=== PATIENT | male | born 2000 | race Caucasian/White ===

== ENCOUNTER 2024-06-30 18:10 | Emergency (ER) | payer BC, SELFPAY ==
[2024-06-30] VITALS (35 sets, daily range): BP systolic 131–155; BP diastolic 53–87; PULSE 90–116; RESP 14–31; TEMP 36.8; O2SAT 96–99
--- NOTE | 2024-06-30 18:15 | DI.CT_ITS ---
Exam(s) CT CHEST/ABD/PEL W CT THORACIC LUMBAR SPINE REC EXAM: CT CHEST/ABD/PEL W CLINICAL HISTORY: Fall > 15 ft, Lower back/L. hip and sternal pain. TECHNIQUE: Imaging Protocol: Axial computed tomography images with coronal and sagittal reformatted images were created and reviewed. Computer aided detection (CAD) was utilized. Axial, coronal and sagittal images of the thoracic and lumbar spine were reconstructed from the chest abdomen pelvic CT in bone and soft tissue algorithm. CONTRAST MATERIAL: Intravenous: Omnipaque 350 Contrast volume:100 ml Oral: no COMPARISON: CT CT THORACIC LUMBAR SPINE REC from 06/30/2024 FINDINGS: CHEST: Tracheobronchial tree: Patent. Pulmonary parenchyma: No consolidation or dominant measurable mass. Pleura: No effusion or pneumothorax. Mediastinum: Within normal limits. Aorta: Thoracic portion non-dilated. Pulmonary arteries: No visible emboli. Heart: No pericardial effusion. Bones: Mild compression fracture of the superior endplate of T12 of approximately 15 percent. No ret ropulsion. The posterior elements are not involved. No additional fractures. No visible rib or alexandra ulder fractures. No lytic or blastic lesions. No hemorrhage visible within the central canal. No e vidence of disc herniation. Soft tissues: Mild soft tissue swelling anterior to the T12 vertebral body. ABDOMEN and PELVIS: Liver: Normal density. No measurable mass. No evidence of laceration. Gallbladder and biliary tract: No evidence of stones or wall thickening. No biliary dilatation. Pancreas: Normal density, no abnormal calcifications or inflammatory process. Spleen: Normal. No evidence of laceration. Kidneys: Normal size, contour and axis. No radiodense stones. No obstructive uropathy. No suspicious masses seen. Adrenal glands: No masses seen. No evidence of renal injury. Aorta: Abdominal portion non-dilated. Lymph nodes: Within normal limits. Soft tissues: Unremarkable. Bladder: Unremarkable. Bowel: No obstruction or bowel wall thickening. Peritoneal cavity: No ascites. No focal collection. No mesenteric inflammatory response. No free ai r. Bones: No evidence of fracture. The alignment is normal. No evidence of disc herniation. No visibl e hemorrhage within the central canal. Reproductive organs: Within normal limits. IMPRESSION: Mild compression fracture of the superior endplate of T12. No acute abnormality in the abdomen or pelvis. RADIATION DOSE DELIVERED: Total DLP DATA REPOSITORY: All CT scans at this facility are submitted to the National Radiology Data Registry (NRDR) Dose Index Registry (DIR) with the [employer] [place] [employer] (A[employer]). RADIATION OPTIMIZATION: All CT scans at this facility use at least one of these dose optimization te chniques: automated exposure control; mA and/or kV adjustment per patient size (includes targeted exa ms where dose is matched to clinical indication); or iterative reconstruction.
--- NOTE | 2024-06-30 18:15 | DI.CT_ITS ---
Exam(s) CT HEAD CERVICAL SPINE WO EXAM: CT HEAD CERVICAL SPINE WO CLINICAL HISTORY: Fall > 15 ft. TECHNIQUE: Imaging Protocol: Axial computed tomography images with coronal and sagittal reformatted images were created and reviewed COMPARISON: No exams were available for comparison FINDINGS: Head CT Ventricles and Extra axial spaces: Normal in size and morphology for the patient's age. Hemorrhage: None. Cerebral parenchyma: No evidence of mass or acute infarct. Midline shift: None. Brainstem/Cerebellum: Normal. Calvarium: Normal. Visualized Paranasal sinuses: Air-fluid level and mucosal mucous retention in left maxillary sinus. Remaining sinuses are clear. No facial fracture. Mastoids: Clear. Soft tissues: Unremarkable. Cervical Spine CT BONES: Vertebral body heights are maintained. Alignment is normal. There is no evidence of acute frac ture. SOFT TISSUES: No paraspinal hematoma. The airway appears intact. No pneumothorax is seen at the lung apices. IMPRESSION: Head CT: No acute abnormality. Right maxillary sinus disease. C-spine CT: no acute abnormality. RADIATION DOSE DELIVERED: Total DLP DATA REPOSITORY: All CT scans at this facility are submitted to the National Radiology Data Registry (NRDR) Dose Index Registry (DIR) with the [employer] ([employer]CR). RADIATION OPTIMIZATION: All CT scans at this facility use at least one of these dose optimization te chniques: automated exposure control; mA and/or kV adjustment per patient size (includes targeted exa ms where dose is matched to clinical indication); or iterative reconstruction.
--- NOTE | 2024-06-30 18:18 | ED.GENADUL_ITS ---
Discharge Plan Disposition Patient Disposition: Home Condition: Stable Discharge Details Clinical Impression: Fracture of T12 vertebra, Fall Primary Care Provider: Unknown,Unknown ED Provider: Chery Allen Home Meds and New Rx's Prescriptions: No Action No Known Home Meds Discharge Instructions Instructions: Vertebral Compression Fracture (DC) Additional Instructions: You were seen in the emergency department today for evaluation after a fall. You are found to have a compression fracture of T12, one of the vertebrae in your spine. This fracture was reassuringly stable, and is safe for you to go home and follow-up as an outpatient with a spine doctor, which is often done by neurosurgery or orthopedics. If you decide that you want to follow-up with the [facility], the phone number for their clinic is [phone]. You need to avoid heavy lifting and significant exertion that cause you to pain. Please use Tylenol and ibuprofen for the basis of your care, you can use topical [id number] medications such as lidocaine patches, and I have provided you with a short course of morphine for breakthrough pain. Please use this medication with caution, as it can cause drowsiness. You need to call your primary care provider on Tuesday to schedule follow-up in your home state and determine if you need additional narcotic pain medications at that time as I cannot prescribe these medications in [place]. Please return to care immediately if you develop weakness or numbness, cannot pee, or have incontinence of urine or feces. Thank you for allowing us to be part of your care. HPI General Mode of arrival: EMS . Date/Time Provider Initiated Documentation: 06/30/24 18:17 . Limitations to Documentation: no limitations . Information obtained by: patient and EMS . HPI Narrative: HPI: This is a 24-year-old male patient without significant past medical history who is presenting for evaluation as a trauma. The patient was exploring a condemned radar tower, stepped backwards and fell through a hole in the floor, falling an estimated 15 to 20 feet onto concrete. He is not sure if he lost consciousness or not, landed on his bottom and is experiencing left hip, lower back, and sternal pain. He was hemodynamically appropriate for EMS, placed in spinal precautions and transported to our facility without need for acute intervention. Prior to this event the patient was in his normal state of health. He is not experiencing vision changes, headache, neck pain. He states that he has some pain to his bilateral elbows, which have some abrasions, has had intermittent numbness and tingling throughout transport of his bilateral hands. Exam: Gen: awake and alert, in no apparent distress. Appears well nourished. HEENT: PERRL, EOMs full and without nystagmus. External ears and nose normal, mucous membranes moist. Neck: C-collar in place, no step-offs or cervical spine tenderness to palpation Lungs: No increased work of breathing, lung sounds clear and equal bilaterally without wheezes, rhonchi, or rales. CV: Heart with regular rate and rhythm, no murmurs auscultated. Strong and symmetrical radial pulses. Abdomen: Soft, nondistended, non-tended to palpation. No rigidity, rebound tenderness, or guarding. MSK: L-spine tenderness to palpation without step-offs or overlying skin changes. The patient does have abrasions to the buttocks. Clavicles and chest wall are stable to compression and without deformity or crepitus. Pelvis stable to AP compression, tenderness to palpation over the left hip. Skin: No rashes or lesions to visualized skin. Normal color, warm, and dry. Abrasions to buttocks and elbows bilaterally Neuro: Cranial nerves II-XII intact and symmetrical bilaterally. 5/5 strength in all muscle groups x4 extremities. No sensory deficits. Psych: Appropriate for situation. MDM: This is a 24-year-old male patient presenting as a trauma by EMS after a fall approximately 15 to 20 feet. On arrival to our emergency department, primary survey noted to be intact, and proceeded with a secondary survey per ATLS standards. Differential certainly includes but is not limited to intracranial hemorrhage, skull fracture, spinal fracture, spinal cord injury. Considered intrathoracic, intra-abdominal, and intrapelvic injuries. Considered long bone fracture, abrasion, contusions. EFAST exam was performed as noted below and was negative. We will obtain protocol laboratory studies as well as a trauma palumbo scan to evaluate for injury. I provided the patient with a dose of Tylenol for initial symptomatic management of pain. ED Course: Laboratory studies reviewed, showing a leukocytosis to 18, likely reactive in this patient with no infectious symptoms or fever. There is no anemia or thrombocytopenia, INR 1.1. Chemistry panel without electrolyte derangements, evidence of kidney injury or severe liver dysfunction. Troponin was negative. CT scans were independently interpreted by myself, showing a T12 compression fracture. Radiology notes a small perispinal hematoma, no evidence of spinal cord involvement or spinal canal stenosis. I did reach out to neurosurgery at [facility], who recommended upright x-rays, which were performed and did not show any instability of the fracture. They recommended outpatient management with multimodal pain control. The patient resides in [place], and unfortunately will not be able to return to [facility] for reevaluation. I did provide him with a short course of oral morphine and recommended he follow-up with his primary care provider for reassessment. The patient C-spine was clinically cleared, he ambulated appropriately, and had an intact neuro examination. At this time, the patient has had a full medical evaluation and is safe for discharge to home. They are hemodynamically stable, ambulatory, and tolerating PO. They are understanding of the follow-up plan and return precautions. They left our facility without incident. Chery Allen MD Related Data Home Medications ?Medication ?Instructions ?Recorded ?Confirmed Unknown [No Known Home Meds] 06/30/24 06/30/24 General Stated Complaint: Trauma GRICEL: 2 Course Vital Signs Vital signs: Vital Signs Pulse 111 H 06/30/24 18:02 Respiratory Rate 18 06/30/24 18:02 Blood Pressure 141/87 H 06/30/24 18:02 Pulse Oximetry 98 06/30/24 18:02 Pulse 111 H 06/30/24 18:02 Respiratory Rate 18 06/30/24 18:02 Blood Pressure 141/87 H 06/30/24 18:02 Pulse Oximetry 98 06/30/24 18:02 Oxygen Delivery Method Room Air 06/30/24 18:02 Oxygen Flow Rate 0 06/30/24 18:02 Medical Decision Making Quality:SDOH Health Related Social Needs: No Data to Display Critical Care Time Critical Care Time Critical Care Time: Yes Total Critical Care Time: 45 Attestation: Upon my evaluation, this patient had a high probability of imminent or life- threatening deterioration due to significant trauma, which required my direct attention, intervention, and personal management. I have personally provided 45 minutes of critical care time exclusive of time spent on separately billable procedures. Time includes review of laboratory data, radiology results, discussion with consultants, and monitoring for potential decompensation. Interventions were performed as documented above. Chery Allen MD [facility] All Active Problems (Updated 06/30/24 @ 21:27 by Chery Allen MD) Fall (Acute) Fracture of T12 vertebra (Acute) Social History Smoking/Tobacco Use Status: Never Smoking risk assessment performed?: Yes Drug use: Never Substance use type: does not use Housing: house Do you feel safe at home: Yes Do you feel safe in your relationship?: Yes POCUS Exam (ED) Efast Exam DATE OF EXAM: 06/30/24 TIME OF EXAM: 18:00 PROVIDER THAT PEFORMED THE STUDY: Chery Allen IS THIS A REPEAT EXAM DURING THIS ENCOUNTER: no REASON FOR EXAM: Fall VISUALIZED STRUCTURES: Hepatorneal space, Pelvis, Pericardium, Perisplenic space, Pleural space/left and Pleural space/right PERTINENT FINDINGS/IMPRESSION: no apparent abnormalities Limited Transthoracic Echo: Exam complete Limited Abdominal Exam: Exam complete Limited Retroperitoneal Exam: Exam complete
[2024-06-30] MEDS: ACETAMINOPHEN 1,000 MG/100 ML BAG 400 MG IVPB (18:25)
[2024-06-30 18:29] LABS: Absolute Basophil Count 0.04 10^3/uL (0.0-0.2); Absolute Eosinophil Count 0.02 10^3/uL (0.0-0.7); Absolute Lymphocyte Count 0.91 10^3/uL (1.2-3.4); Absolute Monocyte Count 1.15 10^3/uL (0.1-0.8); Absolute Neutrophil Count 15.93 10^3/uL (1.2-6.7); Basophils % 0.2 %; Eosinophils % 0.1 %; HCT 46.8 % (40.0-50.0); HGB 16.6 g/dL (13.5-17.5); Immature Grans % 1.1 %; MCH 31.4 pg (27.0-33.0); MCHC 35.5 % (32.0-36.0); MCV 89 fL (80-95); MPV 9.9 fL (8.0-11.0); Monocytes % 6.3 %; Neutrophils % 87.3 %; Platelet Count 255 10^3/uL (130-400); RBC 5.29 10^6/uL (4.36-5.78); RDW-SD 38.7 fL; WBC 18.25 10^3/uL (4.4-10.8)
[2024-06-30] MEDS: Omnipaque 350 MG/ML 100 ML BTL IJ (18:31)
[2024-06-30] MEDS: Normal Saline - Diluent 50 ML VIAL IJ (18:32)
[2024-06-30 18:40] LABS: INR 1.1 (0.9-1.1); Prothrombin Time 10.6 sec (9.1-11.1)
[2024-06-30 18:47] LABS: ALT 61 U/L (16-63); AST 41 U/L (15-37); Albumin 4.7 g/dL (3.4-5.0); Alkaline Phosphatase 97 U/L (46-116); Anion Gap 10.8 mmol/L (3-11); BUN 16 mg/dL (7-18); Bilirubin, Total 1.15 mg/dL (0.2-1.0); CO2 25.2 mmol/L (21.0-32.0); CREATININE 1.3 mg/dL (0.70-1.30); Calcium 9.7 mg/dL (8.5-10.1); Chloride 104 mmol/L (98-107); Estimated GFR 79.66 (mL/min/1.73m2); Glucose 99 mg/dL (74-106); Magnesium 1.6 mg/dL (1.8-2.4); Potassium 3.7 mmol/L (3.5-5.1); Sodium 140 mmol/L (136-145); Total Protein 7.5 g/dL (6.4-8.2); Troponin I 10 ng/L (<or=76)
--- NOTE | 2024-06-30 19:02 | DI.VRAD_ITS ---
PROCEDURE INFORMATION: Exam: CT Head Without Contrast Exam date and time: 06/30/2024 6:27 PM Age: 24 years old Clinical indication: Injury or trauma; Other: Fall > 15 ft; Injury date: 06/30/24; Injury details: Lbp + lt hip pain TECHNIQUE: Imaging protocol: Computed tomography of the head without contrast. Radiation optimization: All CT scans at this facility use at least one of these dose optimization techniques: automated exposure control; mA and/or kV adjustment per patient size (includes targeted exams where dose is matched to clinical indication); or iterative reconstruction. COMPARISON: No relevant prior studies available. FINDINGS: Brain: Normal. No intraxial or extraaxial hemorrhage. No infarct visible at this time. Unremarkable white matter. No mass effect. No significant involutional change. Cerebral ventricles: Normal. No ventriculomegaly or midline shift. Pituitary gland and sella: Normal. No enlargement. Paranasal sinuses: Visualized sinuses are unremarkable. No fluid levels or mucosal thickening. Mastoid air cells: Visualized mastoid air cells are well aerated. Bones: Unremarkable. No acute fracture. Soft tissues: Unremarkable. Vasculature: No significant atherosclerotic calcification. IMPRESSION: Normal head CT. PROCEDURE INFORMATION: Exam: CT Cervical Spine Without Contrast Exam date and time: 06/30/2024 6:27 PM Age: 24 years old Clinical indication: Injury or trauma; Other: Fall > 15 ft; Injury date: 06/30/24; Injury details: Lbp + lt hip pain TECHNIQUE: Imaging protocol: Computed tomography of the cervical spine without contrast. Radiation optimization: All CT scans at this facility use at least one of these dose optimization techniques: automated exposure control; mA and/or kV adjustment per patient size (includes targeted exams where dose is matched to clinical indication); or iterative reconstruction. COMPARISON: No relevant prior studies available. FINDINGS: Bones: No acute fracture. Normal alignment. No significant disc bulge or herniation. No severe spinal canal stenosis. No significant neural foraminal narrowing. Lungs: Lung apices are clear. Soft tissues: Unremarkable. No prevertebral soft tissue swelling. IMPRESSION: No acute findings. Dictated and Authenticated by: Alex Silverio MD. Ordering:ANTONIO Rockwell MD
--- NOTE | 2024-06-30 19:08 | DI.VRAD_ITS ---
Addendum created by Mayte Lopez MD on 06/30/2024 7:10:29 PM EST: I discussed case findings with [facility] Chery 06/30/2024 7:10 PM EST. Initial report created on 06/30/2024 7:08:01 PM EST: PROCEDURE INFORMATION: Exam: CT Chest With Contrast; Diagnostic Exam date and time: 06/30/2024 6:39 PM Age: 24 years old Clinical indication: Injury or trauma; Blunt; Generalized; Other: Fall > 15 ft; Injury date: 06/30/24 TECHNIQUE: Imaging protocol: Diagnostic computed tomography of the chest with contrast. Radiation optimization: All CT scans at this facility use at least one of these dose optimization techniques: automated exposure control; mA and/or kV adjustment per patient size (includes targeted exams where dose is matched to clinical indication); or iterative reconstruction. Contrast material: OMNIPAQUE 350; Contrast volume: 100 ml; Contrast route: INTRAVENOUS (IV); COMPARISON: CT THORACIC LUMBAR SPINE REC 06/30/2024 6:39 PM FINDINGS: Lungs: Unremarkable. No consolidation. No masses. Pleural spaces: Unremarkable. No pneumothorax. No pleural effusion. Heart: Unremarkable. No cardiomegaly. No pericardial effusion. Lymph nodes: Unremarkable. No enlarged lymph nodes. Vasculature: Unremarkable. No aortic aneurysm. Bones/joints: There is a T12 compression fracture with approximately 15-20% loss of vertebral body height. It appears acute. No retropulsion. No stenosis. See separate thoracic spine report. Soft tissues: Unremarkable. IMPRESSION: T12 compression fracture. PROCEDURE INFORMATION: Exam: CT Abdomen And Pelvis With Contrast Exam date and time: 06/30/2024 6:39 PM Age: 24 years old Clinical indication: Injury or trauma; Blunt; Generalized; Other: Fall > 15 ft; Injury date: 06/30/24 TECHNIQUE: Imaging protocol: Computed tomography of the abdomen and pelvis with contrast. Radiation optimization: All CT scans at this facility use at least one of these dose optimization techniques: automated exposure control; mA and/or kV adjustment per patient size (includes targeted exams where dose is matched to clinical indication); or iterative reconstruction. Contrast material: OMNIPAQUE 350; Contrast volume: 100 ml; Contrast route: INTRAVENOUS (IV); COMPARISON: CT THORACIC LUMBAR SPINE REC 06/30/2024 6:39 PM FINDINGS: Liver: Normal. No mass. Gallbladder and biliary ducts: Normal. No calcified stones. No ductal dilation. Pancreas: Normal. No ductal dilation. Spleen: Normal. No splenomegaly. Adrenal glands: Normal. No mass. Kidneys and ureters: Normal. No hydronephrosis. Stomach and bowel: Unremarkable. No obstruction. No mucosal thickening. Appendix: No evidence of appendicitis. Intraperitoneal space: Unremarkable. No free air. No significant fluid collection. Vasculature: Unremarkable. No abdominal aortic aneurysm. Lymph nodes: Unremarkable. No enlarged lymph nodes. Urinary bladder: Unremarkable as visualized. Reproductive: Unremarkable as visualized. Bones/joints: T12 compression fracture. See separate thoracic spine report. Soft tissues: Unremarkable. IMPRESSION: No evidence for acute abnormality in the abdomen or pelvis. Dictated and Authenticated by: Mayte Lopez MD. Ordering:ANTONIO Rockwell MD
--- NOTE | 2024-06-30 19:13 | DI.VRAD_ITS ---
PROCEDURE INFORMATION: Exam: CT Thoracic Spine Without Contrast Exam date and time: 06/30/2024 6:39 PM Age: 24 years old Clinical indication: Low back pain; Other: Fall > 15 ft TECHNIQUE: Imaging protocol: Computed tomography of the thoracic spine without contrast. Radiation optimization: All CT scans at this facility use at least one of these dose optimization techniques: automated exposure control; mA and/or kV adjustment per patient size (includes targeted exams where dose is matched to clinical indication); or iterative reconstruction. COMPARISON: CT CHEST/ABD/PEL W 06/30/2024 6:39 PM FINDINGS: Bones/joints: There is an acute appearing T12 compression fracture. There may be a very minimal paraspinous hematoma. There is no greater than 15-20% loss of vertebral body height. No evidence for retropulsion or stenosis. The posterior elements are not involved. No additional fractures seen. Soft tissues: Unremarkable. IMPRESSION: T12 compression fracture. No stenosis. PROCEDURE INFORMATION: Exam: CT Lumbar Spine Without Contrast Exam date and time: 06/30/2024 6:39 PM Age: 24 years old Clinical indication: Low back pain; Other: Fall > 15 ft TECHNIQUE: Imaging protocol: Computed tomography of the lumbar spine without contrast. Radiation optimization: All CT scans at this facility use at least one of these dose optimization techniques: automated exposure control; mA and/or kV adjustment per patient size (includes targeted exams where dose is matched to clinical indication); or iterative reconstruction. COMPARISON: CT CHEST/ABD/PEL W 06/30/2024 6:39 PM FINDINGS: Bones/joints: No acute fracture. Normal alignment. No significant disc bulge or herniation. No severe spinal canal stenosis. No significant neural foraminal narrowing. Soft tissues: Unremarkable. IMPRESSION: No evidence for acute posttraumatic abnormality of the lumbar spine. Dictated and Authenticated by: Mayte Lopez MD. Ordering:ANTONIO Rockwell MD
[2024-06-30 19:34] LABS: Troponin I 15 ng/L (<or=76)
--- NOTE | 2024-06-30 20:15 | DI.RAD_ITS ---
Exam(s) XR THORACIC SPINE COMPLETE EXAM: XR THORACIC SPINE COMPLETE CLINICAL HISTORY: Uprights, T12 fracture. TECHNIQUE: 2D digital imaging was performed. Three views. COMPARISON: CT CT THORACIC LUMBAR SPINE REC from 06/30/[address] CHEST/ABD/PEL W from 06/30/2024 FINDINGS: The lateral view is somewhat suboptimal due to the area in question being at the lower edge of the im age. BONES: The T12 compression fractures again noted. No change from CT performed earlier the same day. The posterior elements are unremarkable. ALIGNMENT: Within normal limits. DISKS: Interverebral disc spaces are maintained. SOFT TISSUE: Visualized lungs are clear. IMPRESSION: Mild compression of the superior endplate of T12. DATA REPOSITORY: RADIATION DOSE DELIVERED:
--- NOTE | 2024-06-30 20:53 | DI.VRAD_ITS ---
PROCEDURE INFORMATION: Exam: XR Thoracic Spine Exam date and time: 06/30/2024 8:30 PM Age: 24 years old Clinical indication: Injury or trauma; Fall; Injury details: T12 FX seen on CT; Upright imaging requested TECHNIQUE: Imaging protocol: Radiologic exam of the thoracic spine. Views: 3 views. COMPARISON: CT THORACIC LUMBAR SPINE REC 06/30/2024 6:39 PM FINDINGS: Bones/joints: Compression deformity of the T12 level is noted. See separate CT report. No additional acute fracture seen. Soft tissues: Unremarkable. IMPRESSION: T12 compression fracture. Dictated and Authenticated by: Mayte Lopez MD. Ordering:ANTONIO Rockwell MD
[2024-06-30] MEDS: MORPHine IR 15 MG TAB PO (21:38)
[2024-06-30] MEDS: Acetaminophen 325 MG TAB 650 MG PO (21:38)
[2024-06-30] MEDS: Ibuprofen 600 MG TAB PO (21:39)
[2024-06-30] MEDS: MORPHine IR 15 MG TAB, 4 TABS/BTL PO (21:44)
--- OUTSIDE RECORDS SUMMARY | 2024-06-30 22:12 | XMS_ITS | Encounter Summary ---
Author Organization [facility] [place] [address] Care Team Providers Care Instantizer Operator Name Role Phone Unavailable Primary Care Provider Unavailabl e Encounter Details Date Type Department Care Team (Late st Contact Info) Description 05/18/2019 Legacy OP Conversion Encounter [facility] [address] [place] [address] Chucky Saenz NP [address] [place] [address] Social History Tobacco Use Types Packs/Day Years Used Date Smoking Tobacco: Never Assessed Sex and Gender Information Value Date Recorded Sex Assigned at Not on file Legal Sex Male 4:51 AM EST Gender Identity Not on file Sexual Orientation Not on file documented as of this encounter Last Filed Vital Signs Vital Sign Reading Time Taken Comments Blood Pressure 135/83 05/18/2019 8:54 AM EDT Pulse 63 05/18/2019 8:54 AM EDT Temperature - - Respiratory Rate 16 05/18/2019 8:54 AM EDT Oxygen Saturation 98% 05/18/2019 8:54 AM EDT Inhaled Oxygen Concentration - - Weight 65 kg (143 lb 4.8 oz) 05/18/2019 8:54 AM EDT Height 183 cm (6' 0.05) 05/18/2019 8:54 AM EDT Body Mass Index 19.41 05/18/2019 8:54 AM EDT Body Mass Index Percentile 24.07% 05/18/2019 8:5 4 AM EDT Growth Chart: [facility] (Boys, 2-2 0 Years) documented in this encounter Progress Notes * Chukcy Saenz NP - 05/18/2019 8:43 AM EDT > PATIENT: Mark Gallegos DATE OF : 2000 DATE: 05/18/2019 08:43 AM HISTORIAN: self VISIT TYPE: Walk In Visit This 18 year 10 month old male presents for Admin physical. History of Present Illness: 1. Admin physical Patient has no medical complaints at this time. Patient needs physical for his employment. Social History: (Reviewed, updated) Tobacco use reviewed. Preferred language is Pashto. The patient does not need an outside cutter. MARITAL STATUS/FAMILY/SOCIAL SUPPORT Marital status: Single Smoking status: Never smoker. SMOKING STATUS Type Smoking Status Usage Per Day Years Used Total Pack Years Never smoker TOBACCO/VAPING EXPOSURE No passive smoke exposure. Tobacco type: Cigarette Level of exposure: Moderate ALCOHOL There is no history of alcohol use. CAFFEINE The patient uses caffeine: soda. LIFESTYLE DIET regular. Medication Reconciliation Medications reconciled today. Patient is on no medications. Allergies Ingredient Reaction (Severity) Medication Name Comment CODEINE Unknown Phenergan-Codeine PROMETHAZINE HCL Unknown Phenergan-Codeine Reviewed, no changes. Review of Systems System Neg/Pos Details Constitutional Negative Chills, Fever and Malaise. ENMT Negative Otalgia and Sore throat. Eyes Negative Vision changes. Respiratory Negative Dyspnea and Wheezing. Cardio Negative Chest pain. GI Negative Abdominal pain. Negative Dysuria. Neuro Negative Dizziness and Headache. Integumentary Negative Skin lesion. MS Negative Back pain. Vital Signs Time BP mm/Hg Pulse /min Resp /min Temp F Ht ft Ht in Ht cm Wt lb Wt oz Wt kg BMI Wt % BSA m2 O2 Sat% 8:54 AM 135/83 63 16 98.3 6 0 182.88 143.3 65 19.43 52.5 98 Measured By Time Measured by 8:54 AM Charis Muñoz RN Screening Summary: Pain is described as 0/10. Evaluated pain score with Numeric Pain Intensity Scale. The following were reviewed: nutrition, tobacco use, alcohol use, caffeine use and drugs of abuse Physical Exam Exam Findings Details Constitutional Normal No acute distress. Well nourished. Well developed. Eyes Normal Conjunctiva - Right: Normal, Left: Normal. Pupil - Right: Normal, Left: Normal. Ocular muscles - Right: Normal, Left: Normal. Ears Normal Inspection - Right: Normal, Left: Normal. Canal - Right: Normal, Left: Normal. TM - Right: Normal, Left: Normal. Nasopharynx Normal Nares - Right: Normal, Left: Normal. Lips/teeth/gums - Normal. Palate & uvula - Normal. Tonsils - Normal. Oropharynx - Normal. Neck Exam Normal Neck inspection- Normal. Neck ROM - Normal. Respiratory Normal Inspection - Normal. Auscultation - Normal. Cough - Absent. Cardiovascular Normal Heart rate - Regular rate. Rhythm - Regular. Vascular Normal Capillary refill - less than 2 seconds. Abdomen Normal Inspection - Normal. Auscultation - Normal. Percussion - Normal. Palpation - Normal.CVA tenderness - None. No abdominal tenderness. Genitourinary Normal Lymph nodes - Normal. Inguinal canal - Normal. No CVA tenderness. No flank mass. No suprapubic tenderness. No hernia. Neurological Normal Level of consciousness - Normal. Orientation - Normal. Memory - Normal. Balanceand gait - Normal. Coordination - Normal. Psychiatric Normal Orientation - Oriented to time, place, person & situation. Appropriate mood and affect. Immunizations Entered by History Date Immunization 04/24/2014 9:27:00 AM Hep B (ped/adol, 3 dose) 04/24/2014 9:27:00 AM Tdap (Boostrix r) 04/24/2014 9:27:00 AM MCV4 (11-55 yrs) 04/24/2012 11:19:00 AM Hep A (ped/adol, 2 dose) 09/19/2009 12:00:00 AM flu (split) (3 yrs or older) preservative free 08/18/2008 12:00:00 AM Influenza A (H1N1) LAIV Nasal 08/27/2003 12:00:00 AM pneumo (under 5) (PCV7) 01/02/2003 12:00:00 AM pneumo (under 5) (PCV7) 2002 12:00:00 AM pneumo (under 5) (PCV7) 2002 12:00:00 AM pneumo (under 5) (PCV7) 05/05/2007 12:00:00 AM varicella 08/27/2003 12:00:00 AM varicella 05/05/2007 12:00:00 AM MMR 01/20/2004 12:00:00 AM MMR 05/05/2007 12:00:00 AM polio, inactivated (IPV) 01/02/2003 12:00:00 AM polio, inactivated (IPV) 2002 12:00:00 AM polio, inactivated (IPV) 2002 12:00:00 AM polio, inactivated (IPV) 01/02/2003 12:00:00 AM Hib-Hep B 2002 12:00:00 AM Hib-Hep B 2002 12:00:00 AM Hib-Hep B 05/05/2007 12:00:00 AM DTaP 11/20/2003 12:00:00 AM DTaP 01/02/2003 12:00:00 AM DTaP 2002 12:00:00 AM DTaP 2002 12:00:00 AM DTaP Assessment/Plan # Detail Type Description 1. Assessment Normal physical exam (Z00.00). Patient Plan Patient had a normal physical exam. Counseling / Educational Factors: Readiness to learn: accepting. No barriers to learning identified. No learning preferences specified. No cultural / spiritual needs identified. Active Patient Care Team Members Name Contact Agency Type Support Role Relationship Active Date Inactive Date Specialty Bartolo Gallegos Parent, Child is the Patient bartolo gallegos Emergency Contact Mother NO NONE Patient provider PCP Shena Avitia Provider: CHUCKY SAENZ 05/18/2019 9:17 AM Document generated by: ANKIT Brown 05/18/2019 09:[address] [facility] Walk-In [place] [id number] [place] [address] documented in this encounter Plan of Treatment Not on file documented as of this encounter Visit Diagnoses Not on filedocumented in this encounter
--- OUTSIDE RECORDS SUMMARY | 2024-06-30 22:12 | XMS_ITS | Encounter Summary ---
Author Organization [facility] [place] [address] Care Team Providers Care Acid Bath Mixer Name Role Phone Unavailable Primary Care Provider Unavailabl e Encounter Details Date Type Department Care Team (Late st Contact Info) Description 08/02/2013 Legacy OP Conversion Encounter [facility] [place] [address] [facility] [place] [address] Social History Tobacco Use Types Packs/Day Years Used Date Smoking Tobacco: Never Assessed Sex and Gender Information Value Date Recorded Sex Assigned at Not on file Legal Sex Male 4:51 AM EST Gender Identity Not on file Sexual Orientation Not on file documented as of this encounter Last Filed Vital Signs Vital Sign Reading Time Taken Comments Blood Pressure - - Pulse - - Temperature - - Respiratory Rate - - Oxygen Saturation - - Inhaled Oxygen Concentration - - Weight 34 kg (75 lb) 08/02/2013 9:09 AM EST Height 141 cm (4' 7.51) 08/02/2013 9:09 AM EST Body Mass Index 17.11 08/02/2013 9:09 AM EST Body Mass Index Percentile 47.46% 08/02/2013 9:0 9 AM EST Growth Chart: CDC (Boys, 2-2 0 Years) documented in this encounter Plan of Treatment Not on file documented as of this encounter Visit Diagnoses Not on filedocumented in this encounter
--- OUTSIDE RECORDS SUMMARY | 2024-06-30 22:12 | XMS_ITS | Encounter Summary ---
Author Organization [facility] [place] [address] Care Team Providers Care Dinkey Press Operator Name Role Phone Unavailable Primary Care Provider Unavailabl e Encounter Details Date Type Department Care Team (Late st Contact Info) Description 07/03/2019 Legacy OP Conversion Encounter [facility] [place] [address] Alpesh Pérez MD [address] [place] [address] Social History Tobacco Use Types Packs/Day Years Used Date Smoking Tobacco: Never Assessed Sex and Gender Information Value Date Recorded Sex Assigned at Not on file Legal Sex Male 4:51 AM EST Gender Identity Not on file Sexual Orientation Not on file documented as of this encounter Last Filed Vital Signs Vital Sign Reading Time Taken Comments Blood Pressure 108/70 07/03/2019 4:11 PM EST Pulse 63 07/03/2019 4:11 PM EST Temperature - - Respiratory Rate 16 07/03/2019 4:11 PM EST Oxygen Saturation 99% 07/03/2019 4:11 PM EST Inhaled Oxygen Concentration - - Weight 64.9 kg (143 lb 1.3 oz) 07/03/2019 4:11 P M EST Height 182 cm (5' 11.65) 07/03/2019 4:11 PM EST Body Mass Index 19.59 07/03/2019 4:11 PM EST Body Mass Index Percentile 25.52% 07/03/2019 4:1 1 PM EST Growth Chart: CDC (Boys, 2-2 0 Years) documented in this encounter Progress Notes * Alpesh Pérez MD - 07/03/2019 3:38 PM EST > PATIENT: ROSARIO GALLEGOS DATE OF : 2000 DATE: 07/03/2019 03:38 PM HISTORIAN: self VISIT TYPE: Well child History of Present Illness: 1. Well child Re-establishing with provider. needs shots. Patient is here for well visit. Has been eating and drinking well. Good weight gain noted. Stoolingand urinating well. Doing well in school. Active in sports. Denies any sexual activity. Does not want any STD testing today. Denies any drug use. Screening Tools Other Screenings: Encounter Date Documented Date Instrument Score Severity/Interpretation MDD Classification 07/03/2019 07/03/2019 Patient Health Questionnaire (PHQ-9) 1 None Social History: (Reviewed, updated) Tobacco use reviewed. Preferred language is Spanish. The patient does not need an subwarehouse supervisor. EDUCATION/EMPLOYMENT/OCCUPATION Attends [employer]. Grade level in school is eleventh grade. MARITAL STATUS/FAMILY/SOCIAL SUPPORT Marital status: Single parents Smoking status: Never smoker. SMOKING STATUS Type Smoking Status Usage Per Day Years Used Total Pack Years Never smoker TOBACCO/VAPING EXPOSURE No passive vaping exposure. No passive smoke exposure. ALCOHOL There is no history of alcohol use. CAFFEINE The patient uses caffeine: soda. LIFESTYLE DIET regular. HOME ENVIRONMENT/SAFETY The home has smoke detectors. Carbon monoxide detector at home. The home does not have radon present. Uses car seat: face front Allergies Ingredient Reaction (Severity) Medication Name Comment CODEINE Unknown Phenergan-Codeine PROMETHAZINE HCL Unknown Phenergan-Codeine Reviewed, no changes. Review of Systems System Neg/Pos Details Constitutional Negative Fever and Lethargy. ENMT Negative Pharyngitis. Respiratory Negative Cough. Cardio Negative Syncope. GI Negative Abdominal pain, Constipation, Diarrhea and Vomiting. Negative Enuresis and Hematuria. Psych Negative Inappropriate interaction. Integumentary Negative Rash. MS Negative Joint swelling. Brain/Lymph Negative Petechiae. Allergic/Immuno Positive Animals at home. Allergic/Immuno Negative Allergic rhinitis. Vital Signs Time BP mm/Hg Pulse /min Resp /min Temp F Ht ft Ht in Ht cm Wt lb Wt oz Wt kg BMI Wt % BSA m2 O2 Sat% 4:11 PM 108/70 63 16 98.3 5 11.77 182.3 143.08 64.9 19.53 50.7 99 Measured By Time Measured by 4:11 PM Mary Johnson RN 4:11 PM Mary Johnson RN Screening Summary: Pain is described as 0/10. Evaluated pain score with Numeric Pain Intensity Scale. Functional status has not changed. Most recent assessment: 07/03/2019 Cognitive status has not changed. Most recent assessment: 07/03/2019 There are no indicators of domestic abuse present. Physical Exam Exam Findings Details Constitutional Normal No acute distress. Eyes * Visual acuity - OD: Uncorrected: 20/50, OS: Uncorrected: 20/25, OU: Uncorrected: 20/30. Eyes Normal Visual acuity - Corrective lenses - No. Color vision screen: Pass Conjunctiva - Right: Normal, Left: Normal. Pupil - Right: Normal, Left: Normal. Ears Normal Canal - Right: Normal, Left: Normal. TM - Right: Normal, Left: Normal. Nasopharynx Normal Nares - Right: Normal, Left: Normal. Tonsils - Normal. Oropharynx - Normal. Neck Exam Normal Neck ROM - Normal. Respiratory Normal Auscultation - Normal. Cough - Absent. Effort - Normal. Cardiovascular Normal Heart rate - Regular rate. Rhythm - Regular. Murmurs - None. Abdomen Normal Inspection - Normal. Palpation - Normal. No guarding. No rebound. No abdominal tenderness. Genitourinary Normal Testes - Normal. Circumcised. Male shanthi stage - V. Back/Spine Normal Lateral - No scoliosis. Musculoskeletal Normal Visual overview of all four extremities is normal. Psychiatric Normal Orientation - Oriented to time, place, person & situation. Behavior is appropriate for age. Immunizations Immunization Administered By Completed Electro Optics Engineer Lot Number Route Site Credentials Date VIS Given Version Date of VIS Comments CVX Code Hep A (ped/adol, 2 dose) ARIANNA Rivera Patricia 07/03/2019 4:40:18 PM [employer] [id number] Intramuscular Left Deltoid 07/03/2019 03/03/2016 83 Influenza, injectable, quadrivalent, preservative free, split virus ARIANNA Rivera Patricia 07/03/20194:39:43 PM [employer] [id number] Intramuscular Right Deltoid 07/03/2019 03/29/2019 150 Gardasil 9 ARIANNA Rivera Patricia 07/03/2019 4:38:52 PM [employer] [id number] Intramuscular Left Deltoid 07/03/2019 07/03/2019 07/16/2016 06/13/2019 165 Meningococcal MCV4O ARIANNA RiveraCassie 07/03/2019 4:38:15 PM [employer] [id number] Intramuscular Right Deltoid 07/03/2019 03/29/2019 136 Immunization Electro Optics Engineer Lot Number Credentials CVX Code Comments Hep A (ped/adol, 2 dose) [employer] [id number] 83 Influenza, injectable, quadrivalent, preservative free, split virus ID [facility] [id number] 150 Gardasil 9 [employer] [id number] 165 Meningococcal MCV4O [employer] [id number] 136 Immunizations Entered by History Date Immunization 07/03/2019 4:40:18 PM Hep A (ped/adol, 2 dose) 07/03/2019 4:39:43 PM Influenza, injectable, quadrivalent, preservative free, split virus 07/03/2019 4:38:52 PM Gardasil 9 07/03/2019 4:38:15 PM Meningococcal MCV4O 04/24/2014 9:27:00 AM Hep B (ped/adol, 3 [...] 12:00:00 AM DTaP 2002 12:00:00 AM DTaP Completed Orders (this encounter) Order Details Reason Side Interpretation Result Initial Treatment Date Region Patient Health Questionnaire (PHQ-9) None 1 Assessment/Plan # Detail Type Description 1. Assessment Encntr for routine child health exam w/o abnormal findings (Z00.129). Patient Plan doing well, regular follow up. needs HPV series./ Counseling / Educational Factors: Counseling / educational factors reviewed. Active Patient Care Team Members Name Contact Agency Type Support Role Relationship Active Date Inactive Date Specialty Bartolo Gallegos Parent, Child is the Patient bartolo gallegos Emergency Contact Mother NO NONE Patient provider PCP Shena Pract Provider: ALPESH PÉREZ 07/08/2019 10:07 PM Document generated by: Alpesh Pérez MD 07/08/2019 10:07 PM [facility] [[email or web address] [place] [address] [place] [address] documented in this encounter Plan of Treatment Not on file documented as of this encounter Procedures Procedure Name Priority Date/Time Associated Diagnosis Comments LEGACY DEPRESSION SCREENING SCORE Routine 07/03/2019 12:00 AM EST documented in this encounter Results * LEGACY DEPRESSION SCREENING SCORE (07/03/2019 12:00 AM EST) 07/03/2019 07/03/2019 Narrative 07/03/2019 12:00 AM EST Legacy Care Guideline Interval and Comment: 1 Year, no legacy comment recorded~Legacy Depression Screening Score and Detail: 1, None us Conversion Provider HEALTH MAINTENANCE Final Result documented in this encounter Visit Diagnoses Not on filedocumented in this encounter
--- OUTSIDE RECORDS SUMMARY | 2024-06-30 22:12 | XMS_ITS | Encounter Summary ---
Author Organization [facility] Address [place] [address] Care Team Providers Care Telephoto Engineer Name Role Phone Unavailable Primary Care Provider Unavailabl e Encounter Details Date Type Department Care Team (Late st Contact Info) Description 04/29/2015 Legacy OP Conversion Encounter [facility] [address] [place] [address] Clay Benedict MD [address] [place] [address] Social History Tobacco Use Types Packs/Day Years Used Date Smoking Tobacco: Never Assessed Sex and Gender Information Value Date Recorded Sex Assigned at Not on file Legal Sex Male 4:51 AM EST Gender Identity Not on file Sexual Orientation Not on file documented as of this encounter Last Filed Vital Signs Vital Sign Reading Time Taken Comments Blood Pressure 98/67 04/29/2015 10:49 AM EDT Pulse 80 04/29/2015 10:49 AM EDT Temperature - - Respiratory Rate - - Oxygen Saturation - - Inhaled Oxygen Concentration - - Weight 40.4 kg (89 lb) 04/29/2015 10:49 AM EDT Height 163 cm (5' 4.17) 04/29/2015 10:49 AM EDT Body Mass Index 15.19 04/29/2015 10:49 AM EDT Body Mass Index Percentile 3.77% 04/29/2015 10: 49 AM EDT Growth Chart: CDC (Boys, 2-2 0 Years) documented in this encounter Plan of Treatment Not on file documented as of this encounter Visit Diagnoses Not on filedocumented in this encounter
--- OUTSIDE RECORDS SUMMARY | 2024-06-30 22:12 | XMS_ITS | Encounter Summary ---
Author Organization [facility] [place] [address] Care Team Providers Care Operations And Maintenance Specialist Name Role Phone Unavailable Primary Care Provider Unavailabl e Encounter Details Date Type Department Care Team (Late st Contact Info) Description 12/12/2019 Abstract S [facility] [address] [place] [address] Abstraction, MD Dee Social History Tobacco Use Types Packs/Day Years Used Date Smoking Tobacco: Never Assessed Sex and Gender Information Value Date Recorded Sex Assigned at Not on file Legal Sex Male 4:51 AM EST Gender Identity Not on file Sexual Orientation Not on file documented as of this encounter Plan of Treatment Not on file documented as of this encounter Visit Diagnoses Not on filedocumented in this encounter
--- OUTSIDE RECORDS SUMMARY | 2024-06-30 22:12 | XMS_ITS | Encounter Summary ---
Author Organization [facility] [place] [address] Care Team Providers Care Supervisor Polishing Name Role Phone Unavailable Primary Care Provider Unavailabl e Encounter Details Date Type Department Care Team (Late st Contact Info) Description 04/24/2014 Legacy OP Conversion Encounter [facility] [address] [place] [address] Chiquis Story FNP [address] [place] [address] Social History Tobacco Use Types Packs/Day Years Used Date Smoking Tobacco: Never Assessed Sex and Gender Information Value Date Recorded Sex Assigned at Not on file Legal Sex Male 4:51 AM EST Gender Identity Not on file Sexual Orientation Not on file documented as of this encounter Last Filed Vital Signs Vital Sign Reading Time Taken Comments Blood Pressure 92/62 04/24/2014 9:00 AM EDT Pulse 69 04/24/2014 9:00 AM EDT Temperature - - Respiratory Rate - - Oxygen Saturation - - Inhaled Oxygen Concentration - - Weight 35.7 kg (78 lb 12.8 oz) 04/24/2014 9:00 A M EDT Height 155 cm (5' 1.02) 04/24/2014 9:00 AM EDT Body Mass Index 14.88 04/24/2014 9:00 AM EDT Body Mass Index Percentile 4.91% 04/24/2014 9:0 0 AM EDT Growth Chart: CDC (Boys, 2-2 0 Years) documented in this encounter Plan of Treatment Not on file documented as of this encounter Visit Diagnoses Not on filedocumented in this encounter
--- OUTSIDE RECORDS SUMMARY | 2024-06-30 22:12 | XMS_ITS | Encounter Summary ---
Author Organization [facility] [place] [address] Care Team Providers Care Medicaid Business Analyst Name Role Phone Unavailable Primary Care Provider Unavailabl e Encounter Details Date Type Department Care Team (Late st Contact Info) Description 07/02/2016 Legacy OP Conversion Encounter [facility] [place] [address] [place] [address] Yomaira Soler, [facility] [address] [place] [address] Social History Tobacco Use Types Packs/Day Years Used Date Smoking Tobacco: Never Assessed Sex and Gender Information Value Date Recorded Sex Assigned at Not on file Legal Sex Male 4:51 AM EST Gender Identity Not on file Sexual Orientation Not on file documented as of this encounter Last Filed Vital Signs Vital Sign Reading Time Taken Comments Blood Pressure 115/66 07/02/2016 2:54 PM EST Pulse 71 07/02/2016 2:54 PM EST Temperature - - Respiratory Rate 16 07/02/2016 2:54 PM EST Oxygen Saturation 98% 07/02/2016 2:54 PM EST Inhaled Oxygen Concentration - - Weight 52.1 kg (114 lb 13.7 oz) 07/02/2016 2:54 PM EST Height 178 cm (5' 10.08) 07/02/2016 2:54 PM EST Body Mass Index 16.44 07/02/2016 2:54 PM EST Body Mass Index Percentile 8.91% 07/02/2016 2:5 4 PM EST Growth Chart: CDC (Boys, 2-2 0 Years) documented in this encounter Plan of Treatment Not on file documented as of this encounter Visit Diagnoses Not on filedocumented in this encounter
--- OUTSIDE RECORDS SUMMARY | 2024-06-30 22:12 | XMS_ITS | Clinical Summary ---
Author Organization [facility] Address [address] [place] [address] Care Team Providers Care Lathe Operator Contact Lens Name Role Phone Unavailable Primary Care Provider Unavailabl e Allergies Active Allergy Reactions Criticality Noted Date Comments Codeine 04/12/2010 Comment: Phenergan-Codeine; Promethazine Hcl 04/12/2010 Comment: Phenergan-Codeine; Immunizations Name Administration Dates Next Due DTaP 05/05/2007, 4,01/02/2003,11/07,2002 H1N1 Flu 08/18/2008 HPV 9-Valent 07/03/2019 Hep A, 2 Dose 07/03/2019,04/24/2012 Hep B / HiB 01/02/2003,2002,2002 Hep B, Adolescent or Pediatric 04/24/2014 IPV 05/05/2007, 3,2002,08/24 Influenza 07/03/2019 Influenza Split 09/19/2009 MMR 05/05/2007,01/20/2004 Meningococcal Conjugate (2 V IAL - AGES 2 MOS - 55 YRS) 07/03/2019,04/24/2014 Pfizer Sars-cov-2 Vaccinatio n 12+ YRS (Purple Top) 12/05/2020,11/14/2020 Pneumococcal Conjugate PCV 7 08/27/2003, 01/02/2003,2002,08/24 Tdap 04/24/2014 Varicella 05/05/2007,08/27/2003 Family History Medical History Relation Name Comments Allergies Father Asthma Father Seizures Maternal Grandmother Irritable bowel syndrome Mother Neurofibromatosis Other 1 Aunt Migraines Other 2 Family History Relation Name Status Comments Father Maternal Grandmother Mother Other 1 Aunt Other 2 Family History Social History Tobacco Use Types Packs/Day Years Used Date Smoking Tobacco: Never Assessed Sex and Gender Information Value Date Recorded Sex Assigned at Not on file Legal Sex Male 4:51 AM EST Gender Identity Not on file Sexual Orientation Not on file Last Filed Vital Signs Vital Sign Reading [...] Mass Index 19.59 07/03/2019 4:11 PM EST Plan of Treatment Not on file
--- OUTSIDE RECORDS SUMMARY | 2024-06-30 22:12 | XMS_ITS | Referral Summary ---
Author Organization [facility] Address [address] [place] [address] Care Team Providers Care Light Coil Winder Name Role Phone Unavailable Primary Care Provider [...] 7 08/27/2003, 01/02/2003,2002,08/24 Tdap 04/24/2014 Varicella 05/05/2007,08/27/2003 Social History Tobacco Use Types Packs/Day Years [...]
--- OUTSIDE RECORDS SUMMARY | 2024-06-30 22:13 | XMS_ITS | Encounter Summary ---
Author Organization [facility] Address [address] [place] [address] Care Team Providers Care Linux Administrator Name Role Phone Unavailable Primary Care Provider Unavailabl e Encounter Details Date Type Department Care Team (Late st Contact Info) Description 08/29/2011 [facility] Conversion Encounter [facility] [place] [address] [place] [address] [place] [address] Social History Tobacco Use Types Packs/Day Years Used Date Smoking Tobacco: Never Assessed Sex and Gender Information Value Date Recorded Sex Assigned at Not on file Legal Sex Male 4:51 AM EST Gender Identity Not on file Sexual Orientation Not on file documented as of this encounter Last Filed Vital Signs Vital Sign Reading Time Taken Comments Blood Pressure - - Pulse 75 08/29/2011 2:42 PM EST Temperature - - Respiratory Rate 20 08/29/2011 2:42 PM EST Oxygen Saturation 99% 08/29/2011 2:42 PM EST Inhaled Oxygen Concentration - - Weight 28 kg (61 lb 12.8 oz) 08/29/2011 2:42 PM EST Height 139.7 cm (4' 7) 08/29/2011 2:42 PM EST Body Mass Index 14.36 08/29/2011 2:42 PM EST Body Mass Index Percentile 9.57% 08/29/2011 2:4 2 PM EST Growth Chart: CDC (Boys, 2-2 0 Years) documented in this encounter Plan of Treatment Not on file documented as of this encounter Visit Diagnoses Not on filedocumented in this encounter
--- OUTSIDE RECORDS SUMMARY | 2024-06-30 22:13 | XMS_ITS | Encounter Summary ---
Author Organization [facility] [place] [address] Care Team Providers Care Medical Malpractice Paralegal Name Role Phone Unavailable Primary Care Provider Unavailabl e Encounter Details Date Type Department Care Team (Late st Contact Info) Description 06/22/2010 [facility] Con[facility] Chiquis Story, [employer] ARCHITECT [address] [place] [address] Social History Tobacco Use Types Packs/Day Years [...] - Inhaled Oxygen Concentration - - Weight 23.6 kg (52 lb) 06/22/2010 2:15 PM EST Height - - Body Mass Index - - documented in this encounter Plan of Treatment Not on file documented as of this encounter Visit Diagnoses Not on filedocumented in this encounter
--- OUTSIDE RECORDS SUMMARY | 2024-06-30 22:13 | XMS_ITS | Encounter Summary ---
Author Organization [facility] [place] [address] Care Team Providers Care Rodding Anode Worker Name Role Phone Unavailable Primary Care Provider Unavailabl e Encounter Details Date Type Department Care Team (Late st Contact Info) Description 04/24/2012 [facility] Conversion Encounter [facility] [address] [place] [address] Chiquis Story FNP [address] [place] [address] Social History Tobacco Use Types Packs/Day Years Used Date Smoking Tobacco: Never Assessed Sex and Gender Information Value Date Recorded Sex Assigned at Not on file Legal Sex Male 4:51 AM EST Gender Identity Not on file Sexual Orientation Not on file documented as of this encounter Last Filed Vital Signs Vital Sign Reading Time Taken Comments Blood Pressure 96/62 04/24/2012 10:58 AM EDT Pulse 87 04/24/2012 10:58 AM EDT Temperature - - Respiratory Rate - - Oxygen Saturation - - Inhaled Oxygen Concentration - - Weight 29.4 kg (64 lb 12.8 oz) 04/24/20 12 10:58 AM EDT Height 141.5 cm (4' 7.7) 04/24/2012 10 :58 AM EDT Body Mass Index 14.68 04/24/2012 10:58 AM EDT Body Mass Index Percentile 11.52% 04/24 10:58 AM EDT Growth Chart: CDC (Boys, 2-2 0 Years) documented in this encounter Plan of Treatment Not on file documented as of this encounter Visit Diagnoses Not on filedocumented in this encounter
--- OUTSIDE RECORDS SUMMARY | 2024-06-30 22:13 | XMS_ITS | Encounter Summary ---
Author Organization [facility] [place] [address] Care Team Providers Care Die Maker Name Role Phone Unavailable Primary Care Provider Unavailabl e Encounter Details Date Type Department Care Team (Late st Contact Info) Description 09/12/2012 [facility] Conversion Encounter [facility] [address] [place] [id number] Chiquis Story FNP [facility] [place] [address] Social History Tobacco Use Types Packs/Day Years [...] - Inhaled Oxygen Concentration - - Weight 30.4 kg (67 lb) 09/12/2012 10:25 AM EST Height 141.5 cm (4' 7.7) 09/12/2012 10:25 AM ES T Body Mass Index 15.18 09/12/2012 10:25 AM EST Body Mass Index Percentile 17.68% 09/12/2012 10: 25 AM EST Growth Chart: CDC (Boys, 2-2 0 Years) documented in this encounter Plan of Treatment Not on file documented as of this encounter Visit Diagnoses Not on filedocumented in this encounter
--- OUTSIDE RECORDS SUMMARY | 2024-06-30 22:13 | XMS_ITS | Encounter Summary ---
Author Organization [facility] [place] [address] Care Team Providers Care Heating And Cooling Systems Engineer Name Role Phone Unavailable Primary Care Provider Unavailabl e Encounter Details Date Type Department Care Team (Late st Contact Info) Description 06/30/2010 [facility] Conversion En[facility] [place] [address] Social History Tobacco Use Types Packs/Day Years Used Date Smoking Tobacco: Never Assessed Sex and Gender Information Value Date Recorded Sex Assigned at Not on file Legal Sex Male 4:51 AM EST Gender Identity Not on file Sexual Orientation Not on file documented as of this encounter Last Filed Vital Signs Vital Sign Reading Time Taken Comments Blood Pressure 92/50 06/30/2010 3:37 PM EST Pulse - - Temperature - - Respiratory Rate - - Oxygen Saturation - - Inhaled Oxygen Concentration - - Weight 23.1 kg (51 lb) 06/30/2010 3:37 PM EST Height 128.3 cm (4' 2.5) 06/30/2010 3:37 PM EST Body Mass Index 14.06 06/30/2010 3:37 PM EST Body Mass Index Percentile 8.59% 06/30/2010 3:3 7 PM EST Growth Chart: CDC (Boys, 2-2 0 Years) documented in this encounter Plan of Treatment Not on file documented as of this encounter Visit Diagnoses Not on filedocumented in this encounter
--- NOTE | 2024-07-03 14:47 | NUR.NOTE ---
Faxed to [facility], Dr. Savage, requested by Kellie the provider note and radiology reports. P. [phone] F. [phone]. Nursing Note:
== END 2024-06-30 22:01 | disposition home or self-care (01) ==
PROVIDERS: Emergency Provider Emergency Medicine
DX: S22.089A Unspecified fracture of T11-T12 vertebra, initial encounter for closed fracture (principal); W17.2XXA Fall into hole, initial encounter; R10.30 Lower abdominal pain, unspecified; M25.551 Pain in right hip; M25.552 Pain in left hip; M25.521 Pain in right elbow; M25.522 Pain in left elbow
CPT/HCPCS: 74177; 76604; 76705; 76857; 80053; 86850; 86900; 86901; 96365; 99291; 70450; 71260; 72072; 72125; 83735; 84484; 85025; 85610; J0131; J3490